=== PATIENT | female | born 1965 | race American Indian/Alaskan Native ===

== ENCOUNTER 2016-10-09 18:17 | Emergency (ER) | payer BC, OTHER ==
[2016-10-09] MEDS ORDERED: Sodium Chloride 0.9% 1,000 ML IV ONE (20:19)
[2016-10-09] MEDS ORDERED: Ondansetron 8 MG in Sodium Chloride 0.9% 50 ML IV ONE (20:33)
[2016-10-09] MEDS ORDERED: GI Cocktail Oral Solution 30 ML PO ONE (20:33)
--- NOTE | 2016-10-09 20:36 | EDM.PDOC ---
ED HPI GI/ABDOMINAL - General Chief Complaint: Abdominal Pain Stated Complaint: STOMACH PAIN COUPLE OF DAYS Time Seen by Provider: 10/09/16 20:31 Source of Information: Reports: Patient History Limitations: Reports: No limitations - History of Present Illness INITIAL COMMENTS - FREE TEXT/NARRATIVE: 50 yo [place] female c/o LUQ Abd. pain X 2 days w/ Nausea and Diarrhea. Symptom Onset Date: 10/08/16 Symptom Onset Time: 14:00 Timing/Duration: Reports: Day(s):, Unsure Location: LUQ Quality: Reports: ache, cramping Severity: moderate Context: Reports: bad/questionable food Associated Symptoms (-Female): Reports: diarrhea - Related Data Allergies/ADRs: Allergies Allergy/AdvReac Type Severity Reaction Status Date / Time No Known Allergies Allergy Verified 10/09/16 18:47 Home Meds: Home Meds Hydrocortisone [Cortef] 25 mg PO DAILY 11/01/13 [History] Levothyroxine Sodium [Synthroid] 150 mcg PO DAILY 11/01/13 [History] Nabumetone [Relafen] 750 mg PO BID 08/03/14 [History] Aspirin [Halfprin] 81 mg PO BRK 11/19/15 [History] Celecoxib [CeleBREX] 100 mg PO BID 10/09/16 [History] Hydroxychloroquine [Plaquenil] 200 mg PO BID 10/09/16 [History] Sertraline HCl 50 mg PO 10/09/16 [History] atorvaSTATin Calcium [Atorvastatin Calcium] 20 mg PO 10/09/16 [History] Past Medical History HEENT History: Reports: Head Cardiovascular History: Reports: High cholesterol Respiratory History: Reports: Other (see below) Other Respiratory History: sarcodosis Musculoskeletal History: Reports: RA, Other (see below) Other Musculoskeletal History: Has mixed connective tissue Neurological History: Reports: Migraines Psychiatric History: Reports: Anxiety, Depression Endocrine/Metabolic History: Reports: [place]'s disease, Hypothyroidism, Other ( see below) Other Endocrine/Metabolic History: drew's disease. pituitary tumor. Graves disease Immunologic History: Reports: SLE, Other (see below) Other Immunologic History: scleroderma Oncologic (Cancer) History: Reports: Other (see below) Other Oncologic History: pituitary tumor Other Dermatologic History: hyperpigmentation. hereditary angioedema - Infectious Disease History Infectious Disease History: Reports: MRSA - Past Surgical History Respiratory Surgical History: Reports: Lung Biopsies GI Surgical History: Reports: Cholecystectomy Female Surgical History: Reports: Hysterectomy Endocrine Surgical History: Reports: Pituitary tumor resection Social & Family History - Family History Family Medical History: Noncontributory Cardiac: Reports: None Respiratory: Reports: None GI: Reports: None Hematologic: Reports: None Immunologic: Reports: None, Immunosuppression Dermatologic: Reports: Angiodema Oncologic: Reports: None - Tobacco Use Smoking Status *Q: Current Every Day Smoker Years of Tobacco use: 6 Packs/Tins Daily: 0.5 Used Tobacco, but Quit: No Month Tobacco Last Used: july Hand Smoke Exposure: Yes - Caffeine Use Caffeine Use: Reports: Soda - Alcohol Use Days Per Week of Alcohol Use: 0 - Recreational Drug Use Recreational Drug Use: No - Living Situation & Occupation Living situation: Reports: with family Occupation: employed ED ROS GENERAL - Review of Systems Review Of Systems: See Below Constitutional: Reports: no symptoms HEENT: Reports: No symptoms Respiratory: Reports: No Symptoms Cardiovascular: Reports: No symptoms Endocrine: Reports: no symptoms GI/Abdominal: Reports: Abdominal pain (LUQ Pain) : Reports: no symptoms Musculoskeletal: Reports: no symptoms Skin: Reports: no symptoms Neurological: Reports: No Symptoms Psychiatric: Reports: No symptoms Hematologic/Lymphatic: Reports: no symptoms Immunologic: Reports: no symptoms ED EXAM, GI/ABD - Physical Exam Exam: See Below Exam Limited By: No limitations General Appearance: alert, no apparent distress, obese Eyes: bilateral: EOMI Ears: normal external exam Nose: normal inspection Throat/Mouth: Normal inspection Head: atraumatic Neck: normal inspection Respiratory/Chest: no respiratory distress, lungs clear Cardiovascular: normal peripheral pulses GI/Abdominal: soft, hypoactive bowel sounds, tenderness (LUQ w/o rebound) Back Exam: normal inspection Extremities: normal inspection Neurological: alert, oriented, CN II-XII intact Psychiatric: normal affect Skin Exam: Warm, Dry Lymphatic: no adenopathy Course - Vital Signs Last Recorded V/S: Last Vital Signs Temp 36.6 C 10/09/16 18:51 Pulse 84 10/09/16 18:51 Resp 18 10/09/16 18:51 BP 122/70 10/09/16 18:51 Pulse Ox 99 10/09/16 18:51 - Orders/Labs/Meds Orders: Active Orders 24 hr Category Date Time Status Abdomen 2V AP Flat Upright [CR] Urgent Exams 10/09/16 20:19 Stop Req Abdomen Pelvis w Cont [CT] Urgent Exams 10/09/16 20:54 Taken Labs: Laboratory Tests 10/09/16 10/09/16 10/09/16 Range/Units 20:25 20:25 20:33 WBC 8.3 (5.0-10.0) 10^3/uL RBC 5.45 H (4.2-5.4) 10^6/uL Hgb 16.0 (12.0-16.0) g/dL Hct 46.3 (37.0-47.0) % MCV 85.0 (80-100) fL MCH 29.4 (27.0-34.0) pg MCHC 34.6 (33.0-35.0) g/dL Plt Count 232 (150-450) 10^3/uL Neut % (Auto) 83.2 H (42.2-75.2) % Lymph % (Auto) 10.5 L (20.5-50.1) % [place] % (Auto) 5.7 (2-8) % Eos % (Auto) 0.5 L (1.0-3.0) % Baso % (Auto) 0.1 (0.0-1.0) % Sodium 136 (135-145) mmol/L Potassium 4.1 (3.6-5.0) mmol/L Chloride 101 (101-111) mmol/L Carbon Dioxide 27.0 (21.0-31.0) mmol/L Anion Gap 12.1 BUN 15 (7-18) mg/dL Creatinine 0.9 (0.6-1.3) mg/dL Est Cr Clr Drug Dosing 63.86 mL/min Estimated GFR (MDRD) > 60 BUN/Creatinine Ratio 16.66 Glucose 165 H (74-105) mg/dL Calcium 9.0 (8.4-10.2) mg/dl Total Bilirubin 0.5 (0.2-1.0) mg/dL AST 40 (10-42) IU/L ALT 42 (10-60) IU/L Alkaline Phosphatase 94 (42-121) IU/L Total Protein 7.1 (6.7-8.2) g/dl Albumin 4.2 (3.2-5.5) g/dl Globulin 2.9 Albumin/Globulin Ratio 1.45 Urine Color Yellow (YELLOW) Urine Appearance Slightly cloudy (CLEAR) Urine pH 5.5 (5.0-9.0) Ur Specific [place] >= 1.030 (1.005-1.030) Urine Protein 30 H (NEGATIVE) Urine Glucose (UA) 100 H (NEGATIVE) Urine Ketones Negative (NEGATIVE) Urine Occult Blood Negative (NEGATIVE) Urine Nitrite Negative (NEGATIVE) Urine Bilirubin Small H (NEGATIVE) Urine Urobilinogen 1.0 (0.2-1.0) mg/dL Ur Leukocyte Esterase Negative (NEGATIVE) Urine RBC 0-5 /HPF Urine WBC 0-5 (0-5/HPF) /HPF Ur Epithelial Cells Rare /HPF Urine Bacteria Moderate H (0-FEW/HPF) /HPF Urine Mucus Moderate H /LPF Meds: Medications Discontinued Medications Generic Name Dose Route Start Last Admin Trade Name Freq PRN Reason Stop Dose Admin Al Hydroxide/Mg Hydroxide 30 ml 10/09/16 20:33 10/09/16 20:45 Gi Cocktail PO 10/09/16 20:34 30 ml ONETIME ONE Administration Sodium Chloride 1,000 mls @ 999 mls/hr 10/09/16 20:19 10/09/16 20:45 Normal Saline IV 10/09/16 21:19 999 mls/hr .BOLUS ONE Administration Ondansetron HCl 8 mg/ Sodium 54 mls @ 200 mls/hr 10/09/16 20:33 10/09/16 20: 45 Chloride IV 10/09/16 20:49 200 mls/hr ONETIME ONE Administration Iopamidol 100 ml 10/09/16 20:56 10/09/16 21:07 Isovue-300 (61%) IVPUSH 10/09/16 20:57 100 ml ONETIME ONE Administration Departure - Departure Time of Disposition: 22:08 Disposition: Home, Self-Care 01 Condition: good Clinical Impression: Gastroenteritis Forms: ED Department Discharge Additional Instructions: Rest Increase intake of CLEAR Fluids ( Water / Pedialyte / Gatorade ) Take the medication as needed for abdomen cramps: BENTYL 10mg TID # 20 F/U w/ PCP - My Orders Last 24 Hours: My Active Orders 10/09/16 20:19 Abdomen 2V AP Flat Upright [CR] Urgent 10/09/16 20:54 Abdomen Pelvis w Cont [CT] Urgent - Assessment/Plan Last 24 Hours: My Active Orders 10/09/16 20:19 Abdomen 2V AP Flat Upright [CR] Urgent 10/09/16 20:54 Abdomen Pelvis w Cont [CT] Urgent
[2016-10-09 20:51] LABS: CHLORIDE,CL 101 mmol/L (101-111); SODIUM,NA 136 mmol/L (135-145)
[2016-10-09] MEDS ORDERED: Iopamidol 612 MG/ML 100 ML Bottle IVPUSH ONE (20:56)
[2016-10-09 22:20] VITALS: BP 100/66
== END 2016-10-09 22:20 | disposition home or self-care (01) ==
LOC: DL.ED 18:17
DX: K52.9 Noninfective gastroenteritis and colitis, unspecified (principal); E78.00 Pure hypercholesterolemia, unspecified; M06.9 Rheumatoid arthritis, unspecified; F41.9 Anxiety disorder, unspecified; F32.9 Major depressive disorder, single episode, unspecified; E03.9 Hypothyroidism, unspecified; F17.210 Nicotine dependence, cigarettes, uncomplicated; Z79.82 Long term (current) use of aspirin; Z79.899 Other long term (current) drug therapy; Z90.49 Acquired absence of other specified parts of digestive tract; Z90.710 Acquired absence of both cervix and uterus
CPT/HCPCS: 36415; 74177; 80053; 81001; 85025; 96361; 96365; 99284; A9270; J2405; J7030; J7050; Q9967

== ENCOUNTER 2017-07-08 13:14 | Emergency (ER) | payer OTHER ==
--- NOTE | 2017-07-08 13:24 | EDM.PDOC ---
ED HPI GENERAL MEDICAL PROBLEM - General Chief Complaint: Fever Stated Complaint: TEMP 102 Time Seen by Provider: 07/08/17 13:24 Source of Information: Reports: Patient, Old Records, RN, RN Notes Reviewed History Limitations: Reports: No Limitations - History of Present Illness INITIAL COMMENTS - FREE TEXT/NARRATIVE: Arrives from home by POV with c/o onset last night of fevers up to 102F, occasional chills, sore throat, frontal headache, occ. cough, and nausea with vomiting x1. Denies sputum production, neck pain or stiffness, abdominal pain, diarrhea, constipation, diarrhea, urinary symptoms, or rash. Onset: Sudden Onset Date: 07/07/17 Duration: Constant Location: Reports: Generalized Quality: Reports: Ache Severity: Severe Improves with: Reports: None Worsens with: Reports: None Context: Reports: Sick Contact Associated Symptoms: Reports: No Other Symptoms Headache Pain Score (Numeric/FACES): 6 - Related Data Allergies Allergy/AdvReac Type Severity Reaction Status Date / Time No Known Allergies Allergy Verified 10/09/16 18:47 Home Meds: Home Meds Hydrocortisone [Cortef] 25 mg PO DAILY 11/01/13 [History] Levothyroxine Sodium [Synthroid] 150 mcg PO DAILY 11/01/13 [History] Nabumetone [Relafen] 750 mg PO BID 08/03/14 [History] Aspirin [Halfprin] 81 mg PO BRK 11/19/15 [History] Celecoxib [CeleBREX] 100 mg PO BID 10/09/16 [History] Hydroxychloroquine [Plaquenil] 200 mg PO BID 10/09/16 [History] Sertraline HCl 50 mg PO 10/09/16 [History] atorvaSTATin Calcium [Atorvastatin Calcium] 20 mg PO 10/09/16 [History] Past Medical History HEENT History: Reports: Head Cardiovascular History: Reports: High Cholesterol Respiratory History: Reports: Other (See Below) Other Respiratory History: sarcodosis Musculoskeletal History: Reports: RA, Other (See Below) Other 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 pituitary tumor. Graves disease Immunologic History: Reports: SLE, Other (See Below) Other Immunologic History: scleroderma Oncologic (Cancer) History: Reports: Other (See Below) Other Oncologic History: pituitary tumor Other Dermatologic History: hyperpigmentation. hereditary angioedema - Infectious Disease History Infectious Disease History: Reports: MRSA - Past Surgical History Endocrine Surgical History: Reports: Pituitary Tumor Resection Social & Family History - Family History Family Medical History: Noncontributory Cardiac: Reports: None Respiratory: Reports: None GI: Reports: None Hematologic: Reports: None Immunologic: Reports: None, Immunosuppression Dermatologic: Reports: Angiodema Oncologic: Reports: None - Tobacco Use Smoking Status *Q: Current Every Day Smoker Years of Tobacco use: 6 Packs/Tins Daily: 0.5 Used Tobacco, but Quit: No Month Tobacco Last Used: july Second Hand Smoke Exposure: Yes - Caffeine Use Caffeine Use: Reports: Soda - Alcohol Use Days Per Week of Alcohol Use: 0 - Recreational Drug Use Recreational Drug Use: No - Living Situation & Occupation Living situation: Reports: , with Family Occupation: Employed ED ROS GENERAL - Review of Systems Review Of Systems: ROS reveals no pertinent complaints other than HPI. ED EXAM, GENERAL - Physical Exam Exam: See Below Exam Limited By: No Limitations General Appearance: Alert, WD/WN, No Apparent Distress, Obese, Other (acutely ill but non-toxic appearing) Eye Exam: Bilateral Eye: Normal Inspection Ears: Normal External Exam, Normal Canal, Hearing Grossly Normal, Normal TMs Nose: Normal Inspection, Normal Mucosa, No Blood Throat/Mouth: Normal Lips, Normal Teeth, Normal Gums, Normal Voice, No Airway Compromise, Other (pharyngeal erythema, no exudates) Head: Atraumatic, Normocephalic Neck: Normal Inspection, Supple, Non-Tender, Full Range of Motion, Other (no nuchal rigidity). No: Lymphadenopathy (L), Lymphadenopathy (R) Respiratory/Chest: No Respiratory Distress, Lungs Clear, No Accessory Muscle Use , Decreased Breath Sounds, Other (occ. cough) Cardiovascular: Regular Rate, Rhythm, No Edema, Tachycardia GI/Abdominal: Normal Bowel Sounds, Soft, Non-Tender, No Distention, No Abnormal Bruit. No: Guarding, Rigid, Rebound (Female) Exam: Deferred Rectal (Female) Exam: Deferred Back Exam: Normal Inspection. No: CVA Tenderness (L), CVA Tenderness (R) Extremities: Normal Inspection, Normal Range of Motion, Non-Tender, Normal Capillary Refill, No Pedal Edema Neurological: Alert, Oriented, CN II-XII Intact, Normal Cognition, Normal Gait, No Motor/Sensory Deficits Psychiatric: Normal Mood Skin Exam: Warm, Dry, Intact, Normal Color, No Rash Course - Vital Signs Last Recorded V/S: Last Vital Signs Temp 36.8 C 07/08/17 15:21 Pulse 101 H 07/08/17 15:21 Resp 20 07/08/17 15:21 BP 105/51 L 07/08/17 15:21 Pulse Ox 94 L 07/08/17 15:21 - Orders/Labs/Meds Orders: Active Orders 24 hr Category Date Time Status Peripheral IV Care [RC] . DIRECTED Care 07/08/17 13:34 Active CULTURE BLOOD [] Stat Lab 07/08/17 13:45 Received CULTURE BLOOD [] Stat Lab 07/08/17 13:50 Received CULTURE STREP A CONFIRMATION [] Stat Lab 07/08/17 13:42 Results STREP SCRN A RAPID W CULT CONF [] Stat Lab 07/08/17 13:42 Results Sodium Chloride 0.9% [Saline Flush] Med 07/08/17 13:34 Active 10 ml FLUSH ASDIRECTED PRN Blood Culture x2 Reflex Set [OM.PC] Stat Oth 07/08/17 13:34 Ordered Peripheral IV Insertion Adult [OM.PC] Stat Oth 07/08/17 13:34 Ordered Medication Orders Sodium Chloride (Saline Flush) 10 ml FLUSH ASDIRECTED PRN PRN Reason: Keep Vein Open Last Admin: 07/08/17 13:57 Dose: 10 ml Labs: Laboratory Tests 07/08/17 07/08/17 07/08/17 Range/Units 13:45 13:50 13:50 WBC 9.0 (5.0-10.0) 10^3/uL RBC 5.81 H (4.2-5.4) 10^6/uL Hgb 16.5 H (12.0-16.0) g/dL Hct 47.5 H (37.0-47.0) % MCV 81.8 D (80-100) fL MCH 28.4 (27.0-34.0) pg MCHC 34.7 (33.0-35.0) g/dL Plt Count 226 (150-450) 10^3/uL Neut % (Auto) 77.6 H (42.2-75.2) % Lymph % (Auto) 11.9 L (20.5-50.1) % [place] % (Auto) 8.7 H (2-8) % Eos % (Auto) 1.6 (1.0-3.0) % Baso % (Auto) 0.2 (0.0-1.0) % Sodium 136 (135-145) mmol/L Potassium 3.2 L (3.6-5.0) mmol/L Chloride 101 (101-111) mmol/L Carbon Dioxide 24.0 (21.0-31.0) mmol/L Anion Gap 14.2 BUN 8 (7-18) mg/dL Creatinine 0.9 (0.6-1.3) mg/dL Est Cr Clr Drug Dosing 60.49 mL/min Estimated GFR (MDRD) > 60 BUN/Creatinine Ratio 8.88 Glucose 105 (74-105) mg/dL Lactic Acid 1.9 (0.5-2.2) mmol/L Calcium 9.1 (8.4-10.2) mg/dl Total Bilirubin 0.8 (0.2-1.0) mg/dL AST 24 (10-42) IU/L ALT 15 (10-60) IU/L Alkaline Phosphatase 60 (42-121) IU/L Total Protein 7.1 (6.7-8.2) g/dl Albumin 4.3 (3.2-5.5) g/dl Globulin 2.8 Albumin/Globulin Ratio 1.54 Urine Color (YELLOW) Urine Appearance (CLEAR) Urine pH (5.0-9.0) Ur Specific [place] (1.005-1.030) Urine Protein (NEGATIVE) Urine Glucose (UA) (NEGATIVE) Urine Ketones (NEGATIVE) Urine Occult Blood (NEGATIVE) Urine Nitrite (NEGATIVE) Urine Bilirubin (NEGATIVE) Urine Urobilinogen (0.2-1.0) mg/dL Ur Leukocyte Esterase (NEGATIVE) Urine RBC /HPF Urine WBC (0-5/HPF) /HPF Ur Epithelial Cells /HPF Amorphous Sediment (0/HPF) /HPF Urine Bacteria (0-FEW/HPF) /HPF Urine Mucus /LPF 07/08/17 Range/Units 15:17 WBC (5.0-10.0) 10^3/uL RBC (4.2-5.4) 10^6/uL Hgb (12.0-16.0) g/dL Hct (37.0-47.0) % MCV (80-100) fL MCH (27.0-34.0) pg MCHC (33.0-35.0) g/dL Plt Count (150-450) 10^3/uL Neut % (Auto) (42.2-75.2) % Lymph % (Auto) (20.5-50.1) % [place] % (Auto) (2-8) % Eos % (Auto) (1.0-3.0) % Baso % (Auto) (0.0-1.0) % Sodium (135-145) mmol/L Potassium (3.6-5.0) mmol/L Chloride (101-111) mmol/L Carbon Dioxide (21.0-31.0) mmol/L Anion Gap BUN (7-18) mg/dL Creatinine (0.6-1.3) mg/dL Est Cr Clr Drug Dosing mL/min Estimated GFR (MDRD) BUN/Creatinine Ratio Glucose (74-105) mg/dL Lactic Acid (0.5-2.2) mmol/L Calcium (8.4-10.2) mg/dl Total Bilirubin (0.2-1.0) mg/dL AST (10-42) IU/L ALT (10-60) IU/L Alkaline Phosphatase (42-121) IU/L Total Protein (6.7-8.2) g/dl Albumin (3.2-5.5) g/dl Globulin Albumin/Globulin Ratio Urine Color Yellow (YELLOW) Urine Appearance Slightly cloudy (CLEAR) Urine pH 5.0 (5.0-9.0) Ur Specific [place] 1.025 (1.005-1.030) Urine Protein Negative (NEGATIVE) Urine Glucose (UA) Negative (NEGATIVE) Urine Ketones Negative (NEGATIVE) Urine Occult Blood Negative (NEGATIVE) Urine Nitrite Negative (NEGATIVE) Urine Bilirubin Negative (NEGATIVE) Urine Urobilinogen 0.2 (0.2-1.0) mg/dL Ur Leukocyte Esterase Negative (NEGATIVE) Urine RBC 0-5 /HPF Urine WBC 0-5 (0-5/HPF) /HPF Ur Epithelial Cells Few /HPF Amorphous Sediment Rare (0/HPF) /HPF Urine Bacteria Rare (0-FEW/HPF) /HPF Urine Mucus Few H /LPF Influenza A/B: Negative Rapid Strep: Negative Meds: Medications Generic Name Dose Route Start Last Admin Trade Name Tiffanie PRN Reason Stop Dose Admin Sodium Chloride 10 ml 07/08/17 13:34 07/08/17 13:57 Saline Flush FLUSH 10 ml ASDIRECTED PRN Administration Keep Vein Open Discontinued Medications Generic Name Dose Route Start Last Admin Trade Name Tiffanie PRN Reason Stop Dose Admin Acetaminophen 650 mg 07/08/17 13:36 07/08/17 14:00 Tylenol PO 07/08/17 13:37 650 mg NOW ONE Administration Dexamethasone 4 mg 07/08/17 13:35 07/08/17 13:59 Dexamethasone IVPUSH 07/08/17 13:36 4 mg ONETIME ONE Administration Sodium Chloride 1,000 mls @ 999 mls/hr 07/08/17 13:35 07/08/17 13:56 Normal Saline IV 07/08/17 14:35 999 mls/hr .BOLUS ONE Administration Ondansetron HCl 4 mg 07/08/17 13:35 07/08/17 13:57 Zofran IV 07/08/17 13:36 4 mg ONETIME ONE Administration Departure - Departure Time of Disposition: 15:46 Disposition: Home, Self-Care 01 Condition: Good Clinical Impression: Acute viral syndrome Fever Qualifiers: Fever type: unspecified Qualified Code(s): R50.9 - Fever, unspecified Headache Qualifiers: Headache type: unspecified Headache chronicity pattern: acute headache Intractability: not intractable Qualified Code(s): R51 - Headache - Discharge Information Instructions: Fever, Adult, [id number], General Headache Without Cause, Easy- to-Read Forms: ED Department Discharge Additional Instructions: Drink plenty of fluids. Tylenol (Acetaminophen) or Ibuprofen (Advil/Motrin) as needed for pain or fever. Follow directions on package label for dosing and precautions. Rx: Promethazine 25mg *Do not drive or work while under the influence of this medication as it may cause drowsiness. Follow up in clinic if not improving in 3 to 4 days. Return to ER for any emergent concerns. - My Orders Last 24 Hours: My Active Orders 07/08/17 13:34 Peripheral IV Care [RC] . DIRECTED Sodium Chloride 0.9% [Saline Flush] 10 ml FLUSH ASDIRECTED PRN Blood Culture x2 Reflex Set [OM.PC] Stat Peripheral IV Insertion Adult [OM.PC] Stat 07/08/17 13:42 CULTURE STREP A CONFIRMATION [RM] Stat STREP SCRN A RAPID W CULT CONF [RM] Stat 07/08/17 13:45 CULTURE BLOOD [BC] Stat 07/08/17 13:50 CULTURE BLOOD [BC] Stat - Assessment/Plan Last 24 Hours: My Active Orders 07/08/17 13:34 Peripheral IV Care [RC] . DIRECTED Sodium Chloride 0.9% [Saline Flush] 10 ml FLUSH ASDIRECTED PRN Blood Culture x2 Reflex Set [OM.PC] Stat Peripheral IV Insertion Adult [OM.PC] Stat 07/08/17 13:42 CULTURE STREP A CONFIRMATION [RM] Stat STREP SCRN A RAPID W CULT CONF [RM] Stat 07/08/17 13:45 CULTURE BLOOD [BC] Stat 07/08/17 13:50 CULTURE BLOOD [BC] Stat
[2017-07-08] MEDS ORDERED: Sodium Chloride 0.9% 10 ML Syringe FLUSH PRN (13:34)
[2017-07-08] MEDS ORDERED: Ondansetron 4 MG/2 ML SDV IV ONE (13:35)
[2017-07-08] MEDS ORDERED: Dexamethasone 4 MG/ML SDV IVPUSH ONE (13:35)
[2017-07-08] MEDS ORDERED: Sodium Chloride 0.9% 1,000 ML IV ONE (13:35)
[2017-07-08] MEDS ORDERED: Acetaminophen 325 MG Tab PO ONE (13:36)
[2017-07-08 14:19] LABS: CHLORIDE,CL 101 mmol/L (101-111); SODIUM,NA 136 mmol/L (135-145)
[2017-07-08 15:22] VITALS: BP 105/51
== END 2017-07-08 16:07 | disposition home or self-care (01) ==
LOC: DL.ED 13:14
DX: B34.9 Viral infection, unspecified (principal); F17.210 Nicotine dependence, cigarettes, uncomplicated; E11.9 Type 2 diabetes mellitus without complications; E03.9 Hypothyroidism, unspecified; E78.00 Pure hypercholesterolemia, unspecified; Z79.899 Other long term (current) drug therapy; Z79.82 Long term (current) use of aspirin
CPT/HCPCS: 36415; 80053; 81001; 83605; 85025; 87040; 87081; 87430; 87804; 96361; 96374; 96375; 99284; A9270; J1100; J2405; J7030; J7050

== ENCOUNTER 2020-06-28 16:05 | Emergency (ER) | payer OTHER ==
[2020-06-28 16:23] VITALS: BP 155/81; PULSE 78
--- NOTE | 2020-06-28 16:38 | EDM.PDOC ---
ED HPI GENERAL MEDICAL PROBLEM - General Chief Complaint: Back Pain or Injury Stated Complaint: RIGHT LEG PAIN STARTS IN BACK GOES DOWN PAIN 2DAYS Time Seen by Provider: 06/28/20 16:38 Source of Information: Reports: Patient, RN, RN Notes Reviewed History Limitations: Reports: No Limitations - History of Present Illness INITIAL COMMENTS - FREE TEXT/NARRATIVE: Pt is a 54 year old female who presents to the ER with c/o right lower back pain with shooting pains down the right leg. She states she does have some numbness to the anterior of the right leg. She states the pain began about 6 weeks ago. Patient states she saw her primary care provider at [facility] who did an xray, gave her flexeril and gabapentin. Patient states she has been laying flat on her back for the most part, which is what feels best, also states she has been using heat to the area. Patient denies any injury that lead up to the pain. 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 Patient rates pain 10/10. Onset: Gradual Duration: Constant, Getting Worse Location: Reports: Lower Extremity, Right Quality: Reports: Sharp, Stabbing, Throbbing Severity: Severe Improves with: Reports: None Worsens with: Reports: None Context: Reports: Activity, Exercise, Lifting Associated Symptoms: Reports: No Other Symptoms, Weakness right back/leg Pain Score (Numeric/FACES): 10 - Related Data Allergies Allergy/AdvReac Type Severity Reaction Status Date / Time No Known Allergies Allergy Verified 06/28/20 16:32 Home Meds: Home Meds Hydrocortisone [Cortef] 15 mg PO QAM 11/01/13 [History] Acetaminophen 1,000 mg PO BID PRN 12/19/17 [History] Calcium Citrate/Vitamin D3 [Calcium Citrate - Vit D Tablet] 1 tab PO BID 12/19/17 [History] Cyclobenzaprine [Flexeril] 10 mg PO TID PRN 12/19/17 [History] Hydrocortisone 10 mg PO WITHDINNER 12/19/17 [History] SUMAtriptan succinate [Imitrex] 50 mg PO ASDIRECTED PRN 12/19/17 [History] Famotidine 40 mg PO BEDTIME 06/22/18 [History] Fludrocortisone [Fludrocortisone Acetate] 0.1 mg PO DAILY 06/28/20 [History] Hydroxychloroquine [Plaquenil] 200 mg PO BID 06/28/20 [History] Levothyroxine 175 mcg PO ACBREAKFAST 06/28/20 [History] Loratadine [Claritin] 10 mg PO DAILY 06/28/20 [History] Past Medical History HEENT History: Reports: Head, Impaired Vision Other HEENT History: SURGICAL HOLE IN DEVIATED SEPTUM. WEARS CORRECTIVE LENS. UPPER DENTURE PLATE Cardiovascular History: Reports: High Cholesterol Other Cardiovascular History: HX OF LOW BLOOD PRESSURE Respiratory History: Reports: Other (See Below) Other Respiratory History: sarcodosis Gastrointestinal History: Reports: GERD Genitourinary History: Reports: UTI, Recurrent PUBLIC RELATIONS INTERN History: Reports: , Spontaneous Musculoskeletal History: Reports: Arthritis, RA, Other (See Below) Other Musculoskeletal History: Has mixed connective tissue Neurological History: Reports: Migraines Psychiatric History: Reports: Anxiety, Depression Endocrine/Metabolic History: Reports: Columbus's Disease, Diabetes, Type II, Hypothyroidism, Obesity/BMI 30+, Osteopenia, Other (See Below) Other Endocrine/Metabolic History: drew's disease. pituitary tumor. Graves disease Hematologic History: Reports: B12 Deficiency Immunologic History: Reports: SLE, Other (See Below) Other Immunologic History: scleroderma. SLE FACTOR Oncologic (Cancer) History: Reports: Other (See Below) Other Oncologic History: pituitary tumor Dermatologic History: Reports: Other (See Below) Other Dermatologic History: hyperpigmentation. hereditary angioedema - Infectious Disease History Infectious Disease History: Reports: Chicken Pox, MRSA - Past Surgical History Head Surgeries/Procedures: Reports: None HEENT Surgical History: Reports: Other (See Below) Other HEENT Surgeries/Procedures: SEPTUM Cardiovascular Surgical History: Reports: None Respiratory Surgical History: Reports: Lung Biopsies GI Surgical History: Reports: Cholecystectomy, EGD Female Surgical History: Reports: Hysterectomy, Tubal Ligation Endocrine Surgical History: Reports: Pituitary Tumor Resection Neurological Surgical History: Reports: None Musculoskeletal Surgical History: Reports: None Oncologic Surgical History: Reports: None Dermatological Surgical History: Reports: None Social & Family History - Family History Family Medical History: No Pertinent Family History Cardiac: Reports: None Respiratory: Reports: None GI: Reports: None Hematologic: Reports: None Immunologic: Reports: None, Immunosuppression Dermatologic: Reports: Angiodema Oncologic: Reports: None - Caffeine Use Caffeine Use: Reports: Soda Other Caffeine Use: SPRITE ZERO, TEA AVERAGE OF 2-4 BEVERAGES DAILY - Living Situation & Occupation Living situation: Reports: , with Family Occupation: Employed ED ROS GENERAL - Review of Systems Review Of Systems: Comprehensive ROS is negative, except as noted in HPI. ED EXAM,LOWER BACK PAIN/INJURY - Physical Exam Exam: See Below Exam Limited By: No Limitations General Appearance: Alert, WD/WN, Moderate Distress Eye Exam: Bilateral Eye: EOMI, Normal Inspection Ears: Normal External Exam, Hearing Grossly Normal Nose: Normal Inspection Throat/Mouth: Normal Inspection, Normal Lips, Normal Teeth, Normal Gums, Normal Oropharynx, Normal Voice, No Airway Compromise Head: Atraumatic, Normocephalic Neck: Normal Inspection, Supple, Non-Tender, Full Range of Motion Respiratory/Chest: No Respiratory Distress, Lungs Clear, Normal Breath Sounds, No Accessory Muscle Use, Chest Non-Tender Cardiovascular: Normal Peripheral Pulses, Regular Rate, Rhythm, No Edema, No Gallop, No JVD, No Murmur, No Rub GI/Abdominal: Normal Bowel Sounds, Soft, Non-Tender (Female) Exam: Deferred Rectal (Female) Exam: Deferred Back Exam: Decreased Range of Motion, Muscle Spasm, Paraspinal Tenderness, Vertebral Tenderness Extremities: Leg Pain, Limited Range of Motion Neurological: Alert, Normal Mood/Affect, CN II-XII Intact, Oriented x 3 Psychiatric: Normal Affect, Normal Mood, Tearful Skin Exam: Warm, Dry, Intact, Normal Color, No Rash Lymphatic: No Adenopathy Course - Vital Signs Last Recorded V/S: Last Vital Signs Temp 98.4 F 06/28/20 16:21 Pulse 78 06/28/20 16:21 Resp 20 06/28/20 16:21 BP 155/81 H 06/28/20 16:21 Pulse Ox 100 06/28/20 16:21 - Orders/Labs/Meds Meds: Medications Discontinued Medications Generic Name Dose Route Start Last Admin Trade Name Tiffanie PRN Reason Stop Dose Admin Dexamethasone 8 mg 06/28/20 16:55 06/28/20 17:16 Decadron IM 06/28/20 16:56 8 mg ONETIME ONE Administration Hydromorphone HCl 1 mg 06/28/20 16:55 06/28/20 17:13 Dilaudid IM 06/28/20 16:56 1 mg ONETIME ONE Administration - Re-Assessments/Exams Free Text/Narrative Re-Assessment/Exam: 06/28/20 17:42 Patient states the pain medication has helped. Departure - Departure Time of Disposition: 17:42 Disposition: Home, Self-Care 01 Condition: Fair Clinical Impression: Right lumbosacral radiculopathy Sciatica Qualifiers: Laterality: right Qualified Code(s): M54.31 - Sciatica, right side - Discharge Information *PRESCRIPTION DRUG MONITORING PROGRAM REVIEWED*: No *COPY OF PRESCRIPTION DRUG MONITORING REPORT IN PATIENT GINI: No Instructions: Muscle Strain, [id number], Sciatica, [id number], Lumbosacral Radiculopathy, Chronic Back Pain, [id number], Back Injury Prevention, [id number], Neuropathic Pain Forms: ED Department Discharge Additional Instructions: RX: Gabapentin Increase gabapentin to 600mg twice daily May use Flexeril as directed for muscle spasm/pain May use Tylenol as directed for pain May alternate heat and ice to the area Rest Follow up with your primary care facility on Tuesday for MRI and discuss Gabapentin/medications Sepsis Event Note (ED) - Evaluation Sepsis Screening Result: No Definite Risk - Focused Exam Vital Signs: Vital Signs Temp Pulse Resp BP Pulse Ox 06/28/20 16:21 98.4 F 78 20 155/81 H 100
[2020-06-28] MEDS ORDERED: Dexamethasone 4 MG/ML SDV IM ONE (16:55)
[2020-06-28] MEDS ORDERED: HYDROmorphone 1 MG/ML Syringe IM ONE (16:55)
== END 2020-06-28 17:49 | disposition home or self-care (01) ==
LOC: DL.ED 16:05
DX: M54.41 Lumbago with sciatica, right side (principal); M54.17 Radiculopathy, lumbosacral region; E11.9 Type 2 diabetes mellitus without complications; E03.9 Hypothyroidism, unspecified; K21.9 Gastro-esophageal reflux disease without esophagitis; E66.9 Obesity, unspecified; Z68.30 Body mass index [BMI] 30.0-30.9, adult; Z79.899 Other long term (current) drug therapy
CPT/HCPCS: 96372; 99283; J1100; J1170

== ENCOUNTER 2021-02-24 15:59 | Emergency (ER) | payer OTHER ==
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
[2021-02-24] MEDS ORDERED: Silver Sulfadiazine 1% Crm 50 GM Tube TOP ONE (16:14)
[2021-02-24] MEDS ORDERED: Diphtheria,Pertussis(Acell),Tetanus Vaccine 0.5 ML Syringe IM ONE (16:15)
[2021-02-24] MEDS ORDERED: HYDROmorphone 0.5 MG/0.5 ML Syringe IM ONE (16:17)
[2021-02-24] MEDS ORDERED: HYDROmorphone 0.5 MG/0.5 ML Syringe ONE (16:26)
== END 2021-02-24 17:20 | disposition home or self-care (01) ==
LOC: DL.ED 15:59
DX: T22.211A Burn of second degree of right forearm, initial encounter (principal); F19.90 Other psychoactive substance use, unspecified, uncomplicated; E27.1 Primary adrenocortical insufficiency; K21.9 Gastro-esophageal reflux disease without esophagitis; M06.9 Rheumatoid arthritis, unspecified; G43.909 Migraine, unspecified, not intractable, without status migrainosus; E11.9 Type 2 diabetes mellitus without complications; E03.9 Hypothyroidism, unspecified; Z23 Encounter for immunization; Z79.899 Other long term (current) drug therapy; X19.XXXA Contact with other heat and hot substances, initial encounter
CPT/HCPCS: 16020; 90471; 90715; 96372; 99283; A9270; J1170

== ENCOUNTER 2021-12-10 23:32 | Emergency (ER) | payer OTHER ==
[2021-12-10 21:04] VITALS: BP 165/105; PULSE 108
[~2021-12-10 23:32] MED LIST: Acetaminophen/HYDROcodone 325-10 MG Tab ONE; HYDROmorphone 0.5 MG/0.5 ML Syringe IVPUSH ONE
[2021-12-10] MEDS ORDERED: Acetaminophen/HYDROcodone 325-10 MG Tab PO ONE (23:33)
== END 2021-12-10 23:47 | disposition home or self-care (01) ==
LOC: DL.ED 23:32
DX: S52.502A Unspecified fracture of the lower end of left radius, initial encounter for closed fracture (principal); S52.602A Unspecified fracture of lower end of left ulna, initial encounter for closed fracture; E03.9 Hypothyroidism, unspecified; E11.9 Type 2 diabetes mellitus without complications; Z90.49 Acquired absence of other specified parts of digestive tract; Z90.710 Acquired absence of both cervix and uterus; Z87.891 Personal history of nicotine dependence; Z79.899 Other long term (current) drug therapy; W18.39XA Other fall on same level, initial encounter
CPT/HCPCS: 29125; 73060; 73090; 96374; 99283; A9270; J1170

== ENCOUNTER 2022-07-05 22:09 | Inpatient (IN) | payer OTHER ==
[~2022-07-05 22:09] MED LIST changes: -Acetaminophen/HYDROcodone 325-10 MG Tab ONE; -HYDROmorphone 0.5 MG/0.5 ML Syringe IVPUSH ONE; +Hydrocortisone Sodium Succinate 100 MG/2 ML SDV IVPUSH ONE; +Sodium Chloride 0.9% 1,000 ML IV ONE
[2022-07-05 22:31] LABS: ANION GAP 19.1 mEq/L (7-13)
[2022-07-05] MEDS ORDERED: Magnesium Sulfate/Water 2 GM in Premix Bag 1 BAG IV ONE (22:41)
[2022-07-05 22:42] LABS: CORONAVIRUS COVID-19 NAA NEGATIVE (NEGATIVE); RESPIRATORY SYNCYTIAL VIR NAA NEGATIVE (NEGATIVE)
[2022-07-05] MEDS ORDERED: Sodium Chloride 0.9% 1,000 ML IV ONE (23:00)
[2022-07-05] MEDS ORDERED: Ondansetron 4 MG/2 ML SDV IVPUSH ONE (23:04)
[2022-07-05] MEDS ORDERED: Fludrocortisone 0.1 MG Tab PO ONE (23:57)
[2022-07-06] MEDS ORDERED: cefTRIAXone 1 GM Vial IVPUSH ONE (00:16)
[2022-07-06] MEDS ORDERED: Norepinephrine 4 MG in Dextrose 5% in Water 246 ML IV SCH ×2 (00:30)
[2022-07-06] MEDS ORDERED: Dextrose 5%-0.9% NaCl with KCl 1,000 ML IV SCH (01:00)
[2022-07-06] MEDS ORDERED: Hydrocortisone Sodium Succinate 100 MG/2 ML SDV IVPUSH SCH (04:00)
[2022-07-06] MEDS ORDERED: Acetaminophen 500 MG Tab PO ONE ×2 (05:18→07:23)
[2022-07-06 05:28] LABS: ANION GAP 16.1 mEq/L (7-13)
[2022-07-06] MEDS ORDERED: Sodium Chloride 0.9% 1,000 ML IV ONE (06:58)
[2022-07-06] MEDS ORDERED: Acetaminophen 325 MG Tab PO PRN (09:35)
[2022-07-06] MEDS ORDERED: Ondansetron 4 MG Tab.DIS PO PRN (09:35)
[2022-07-06] MEDS ORDERED: Docusate Sodium 100 MG Cap PO PRN (09:35)
[2022-07-06] MEDS ORDERED: Ondansetron 4 MG/2 ML SDV IVPUSH PRN (09:35)
[2022-07-06] MEDS ORDERED: Sodium Chloride 0.9% 10 ML Syringe FLUSH PRN (09:37)
[2022-07-06 10:38] LABS: ANION GAP 13.2 mEq/L (7-13)
[2022-07-06] MEDS: Lactated Ringers 1,000 ML IV SCH ×2 (11:06→17:32)
[2022-07-06] MEDS: Hydrocortisone Sodium Succinate 100 MG/2 ML SDV IVPUSH SCH ×2 (12:12→17:29)
[2022-07-06] MEDS: Heparin Sodium 5,000 Units/ML Vial SUBCUT SCH ×2 (14:50→21:11)
[2022-07-06] MEDS ORDERED: Albuterol 6.7 GM Inhaler INH PRN (15:49)
[2022-07-06] MEDS ORDERED: SUMATRIPTAN SUCCINATE 50 MG PO PRN (15:49)
[2022-07-06] MEDS ORDERED: 50% Dextrose in Water 50 ML Syringe IVPUSH PRN (15:55)
[2022-07-06] MEDS ORDERED: Glucagon,Human Recombinant 1 MG Vial IM PRN (15:55)
[2022-07-06] MEDS: Hydroxychloroquine 200 MG Tab PO SCH (17:26)
[2022-07-06] MEDS: Insulin Lispro 100 Units/ML 3 ML Vial SUBCUT SCH ×2 (17:27→21:45)
[2022-07-06] MEDS: atorvaSTATin 20 MG Tab PO SCH (21:11)
[2022-07-06] MEDS: cefTRIAXone 2 GM Vial IVPUSH SCH (21:11)
[2022-07-07] MEDS: Sodium Chloride 0.9% 10 ML Syringe FLUSH SCH ×3 (00:01→21:53)
[2022-07-07] MEDS: traZODone 50 MG Tab PO PRN ×2 (00:14→23:43)
[2022-07-07] MEDS: Lactated Ringers 1,000 ML IV SCH ×2 (01:37→09:47)
[2022-07-07] MEDS: Levothyroxine 150 MCG Tab PO SCH (05:43)
[2022-07-07] MEDS: Heparin Sodium 5,000 Units/ML Vial SUBCUT SCH ×3 (05:44→21:13)
[2022-07-07] MEDS: Hydrocortisone Sodium Succinate 100 MG/2 ML SDV IVPUSH SCH ×2 (05:44)
[2022-07-07 09:47] LABS: ANION GAP 13.4 mEq/L (7-13)
[2022-07-07] MEDS: Hydroxychloroquine 200 MG Tab PO SCH ×2 (09:48→17:18)
[2022-07-07] MEDS: Fludrocortisone 0.1 MG Tab PO SCH (09:48)
[2022-07-07] MEDS: Insulin Lispro 100 Units/ML 3 ML Vial SUBCUT SCH ×4 (09:49→21:13)
[2022-07-07 10:48] LABS: HEMOGLOBIN A1C 6.5 % (<5.7)
[2022-07-07] MEDS ORDERED: Potassium Chloride 10 MEQ Tab.ER PO ONE (11:00)
[2022-07-07] MEDS ORDERED: Hydrocortisone 20 MG Tab PO SCH (18:00)
[2022-07-07] MEDS: atorvaSTATin 20 MG Tab PO SCH (21:12)
[2022-07-07] MEDS: cefTRIAXone 2 GM Vial IVPUSH SCH (21:53)
[2022-07-08] MEDS: Levothyroxine 150 MCG Tab PO SCH (06:07)
[2022-07-08] MEDS: Heparin Sodium 5,000 Units/ML Vial SUBCUT SCH (06:09)
[2022-07-08 08:08] VITALS: BP 112/63; PULSE 80
[2022-07-08] MEDS: Hydroxychloroquine 200 MG Tab PO SCH (08:34)
[2022-07-08] MEDS: Fludrocortisone 0.1 MG Tab PO SCH (08:34)
[2022-07-08] MEDS ORDERED: Potassium Chloride 10 MEQ Tab.ER PO ONE (09:00)
[2022-07-08] MEDS ORDERED: Hydrocortisone 20 MG Tab PO SCH (09:00)
[2022-07-08] MEDS: Insulin Lispro 100 Units/ML 3 ML Vial SUBCUT SCH (09:00)
[2022-07-08] MEDS: Sodium Chloride 0.9% 10 ML Syringe FLUSH SCH (09:49)
== END 2022-07-08 10:35 | disposition home or self-care (01) | DRG 871 ==
LOC: DL.ED 22:09 → DL.MS 07-06 08:16 → DL.ED 07-06 08:31
PROVIDERS: ADMIT Hospitalist; ATTEND Hospitalist
PROC: 3E033XZ Introduction of Vasopressor into Peripheral Vein, Percutaneous Approach (ICD-10-PCS; principal; 2022-07-06)
PROC: 3E03329 Introduction of Other Anti-infective into Peripheral Vein, Percutaneous Approach (ICD-10-PCS; 2022-07-06)
DX: A41.9 Sepsis, unspecified organism (principal); R65.21 Severe sepsis with septic shock; N39.0 Urinary tract infection, site not specified; E27.1 Primary adrenocortical insufficiency; E27.2 Addisonian crisis; N17.9 Acute kidney failure, unspecified; K52.9 Noninfective gastroenteritis and colitis, unspecified; R73.9 Hyperglycemia, unspecified; H54.7 Unspecified visual loss; E78.00 Pure hypercholesterolemia, unspecified; Z20.822 Contact with and (suspected) exposure to COVID-19; K21.9 Gastro-esophageal reflux disease without esophagitis; M19.90 Unspecified osteoarthritis, unspecified site; M06.9 Rheumatoid arthritis, unspecified; G43.909 Migraine, unspecified, not intractable, without status migrainosus; F41.9 Anxiety disorder, unspecified; F32.A Depression, unspecified; E03.9 Hypothyroidism, unspecified; E66.9 Obesity, unspecified; M85.80 Other specified disorders of bone density and structure, unspecified site; E53.8 Deficiency of other specified B group vitamins; M32.9 Systemic lupus erythematosus, unspecified; D84.1 Defects in the complement system; Z86.19 Personal history of other infectious and parasitic diseases; Z86.14 Personal history of Methicillin resistant Staphylococcus aureus infection; Z90.49 Acquired absence of other specified parts of digestive tract; Z90.710 Acquired absence of both cervix and uterus; Z79.890 Hormone replacement therapy; Z79.899 Other long term (current) drug therapy; Z87.440 Personal history of urinary (tract) infections; Z98.51 Tubal ligation status; Z87.891 Personal history of nicotine dependence; Z68.34 Body mass index [BMI] 34.0-34.9, adult
CPT/HCPCS: 0241U; 36415; 74176; 80048; 80053; 81001; 82533; 82947; 83036; 83605; 83735; 84145; 84443; 85025; 86140; 87040; 87086; 87088; 87186; 99223; 99233; 99239; A9270-GY; J0696; J1644; J1720; J1815-GY; J2405; J3475; J3480; J3490; J7030; J7060; J7120

== ENCOUNTER 2022-07-23 15:23 | Emergency (ER) | payer OTHER ==
[2022-07-23] MEDS ORDERED: Sodium Chloride 0.9% 10 ML Syringe FLUSH PRN (15:45)
[2022-07-23 16:20] VITALS: BP 171/86; PULSE 75
[2022-07-23 16:33] LABS: ANION GAP 11.6 mEq/L (7-13)
== END 2022-07-23 17:39 | disposition home or self-care (01) ==
LOC: DL.ED 15:23
DX: R07.89 Other chest pain (principal); E11.9 Type 2 diabetes mellitus without complications; E03.9 Hypothyroidism, unspecified; K21.9 Gastro-esophageal reflux disease without esophagitis; Z79.899 Other long term (current) drug therapy
CPT/HCPCS: 36415; 71045; 80053; 83735; 84443; 84484; 85025; 93005; 99285

== ENCOUNTER 2022-08-15 09:34 | Emergency (ER) | payer OTHER ==
[2022-08-15] MEDS ORDERED: Ondansetron 4 MG Tab.DIS PO ONE (09:35)
[2022-08-15] MEDS ORDERED: Atropine/Diphenoxylate 0.025-2.5 MG Tab PO ONE ×2 (09:35→10:16)
[2022-08-15 10:13] VITALS: BP 111/75
[2022-08-15] MEDS ORDERED: Sodium Chloride 0.9% 1,000 ML IV ONE (10:15)
[2022-08-15] MEDS ORDERED: Hydrocortisone Sodium Succinate 100 MG/2 ML SDV IVPUSH ONE ×2 (10:15→14:05)
[2022-08-15] MEDS ORDERED: Ondansetron 4 MG/2 ML SDV IV ONE ×2 (10:15→14:09)
[2022-08-15] MEDS ORDERED: Sodium Chloride 0.9% 10 ML Syringe FLUSH PRN (10:17)
[2022-08-15] MEDS ORDERED: Morphine 2 MG/ML SYRINGE IVPUSH ONE (10:18)
[2022-08-15 11:13] LABS: ANION GAP 19.9 mEq/L (7-13)
[2022-08-15] MEDS ORDERED: Magnesium Sulfate/Water 2 GM in Premix Bag 1 BAG IV ONE (11:28)
[2022-08-15] MEDS ORDERED: NS with KCl 40mEq 1,000 ML IV SCH (11:30)
[2022-08-15] MEDS ORDERED: Atropine/Diphenoxylate 0.025-2.5 MG Tab ONE ×2 (13:33→14:02)
[2022-08-15] MEDS ORDERED: Ondansetron 4 MG Tab.DIS ONE (13:34)
[2022-08-15] MEDS ORDERED: Famotidine 20 MG/2 ML SDV IVPUSH ONE (14:09)
[2022-08-15] MEDS ORDERED: Morphine 4 MG/ML Syringe IVPUSH ONE (14:10)
[2022-08-15 15:59] VITALS: PULSE 102
== END 2022-08-15 16:13 | disposition home or self-care (01) ==
LOC: DL.ED 09:34
DX: K52.9 Noninfective gastroenteritis and colitis, unspecified (principal); E86.0 Dehydration; E27.1 Primary adrenocortical insufficiency; R51.9 Headache, unspecified; E78.00 Pure hypercholesterolemia, unspecified; E11.9 Type 2 diabetes mellitus without complications; E03.9 Hypothyroidism, unspecified; K21.9 Gastro-esophageal reflux disease without esophagitis; Z79.899 Other long term (current) drug therapy
CPT/HCPCS: 36415; 80053; 81001; 82150; 82947; 83605; 83735; 85025; 87040; 87045; 87046; 87086; 87493; 87899; 96361; 96365; 96366; 96368; 96375; 96376; 99283; 99284-25; A9270-GY; J1720; J2270; J2405; J3475; J3480; J3490; J7030

== ENCOUNTER 2023-02-21 19:45 | Emergency (ER) | payer OTHER ==
[2023-02-21] MEDS ORDERED: Sodium Chloride 0.9% 10 ML Syringe FLUSH PRN (20:00)
[2023-02-21] MEDS ORDERED: Sodium Chloride 0.9% 1,000 ML IV ONE ×2 (20:00→20:59)
[2023-02-21] MEDS ORDERED: Ondansetron 4 MG/2 ML SDV IVPUSH ONE (20:00)
[2023-02-21 20:12] LABS: BASOPHILS PERCENT AUTO 0.2 % (0.0-1.0); HEMATOCRIT 48.9 % (37.0-47.0); LYMPHOCYTES PERCENT AUTO 21.3 % (20.5-50.1); MEAN CORPUSCULAR HEMOGLOBIN 28.5 pg (27.0-34.0); MEAN CORPUSCULAR HGB CONC 34.8 g/dL (33.0-35.0); NEUTROPHILS PERCENT AUTO 67.5 % (42.2-75.2); PLATELET COUNT,PLT 217 10^3/uL (150-450); RED BLOOD CELL COUNT 5.96 10^6/uL (4.2-5.4); WHITE BLOOD CELL COUNT,WBC 8.1 10^3/uL (5.0-10.0)
[2023-02-21 20:32] LABS: INR 1.1 (0.9-1.2); PROTHROMBIN TIME 10.8 SEC (9.0-12.0)
[2023-02-21 20:34] LABS: A/G RATIO 1.2; ALANINE AMINOTRANSFERASE,ALT 31 U/L (14-59); ALBUMIN 3.7 g/dL (3.4-5.0); ALKALINE PHOSPHATASE 91 U/L (46-116); AMYLASE 44 U/L (25-115); ANION GAP 17.4 mEq/L (7-13); ASPARTATE AMNIOTRANSFERASE,AST 41 U/L (15-37); BILIRUBIN TOTAL 1.2 mg/dL (0.2-1.0); BLOOD UREA NITROGEN,BUN 16 mg/dL (7-18); BUN/CREATININE RATIO 16.5 (No establ ref range); CARBON DIOXIDE,CO2 22 mmol/L (21-32); CHLORIDE,CL 102 mmol/L (98-107); CREATININE 0.97 mg/dL (0.55-1.02); EST CRCL DRUG DOSING (CG) 55.74 mL/min; GLUCOSE RANDOM 112 mg/dL (70-99); LIPASE 52 U/L (73-393); MAGNESIUM 1.7 mg/dL (1.8-2.4); POTASSIUM,K 3.4 mmol/L (3.5-5.1); PROTEIN TOTAL,TP 6.7 g/dL (6.4-8.2); SODIUM,NA 138 mmol/L (136-145)
[2023-02-21 20:38] LABS: ESTIMATED GFR 68 mL/min (>=60)
[2023-02-21 20:39] LABS: C-REACTIVE PROTEIN 14.9 mg/dL (0.0-0.9)
[2023-02-21 20:43] LABS: LACTIC ACID 1.2 mmol/L (0.4-2.0)
[2023-02-21 20:44] LABS: APPEARANCE,URINE SLIGHTLY CLOUDY (CLEAR); BILIRUBIN,URINE MODERATE (NEGATIVE); COLOR,URINE YELLOW (YELLOW); GLUCOSE,URINE NEGATIVE (NEGATIVE); KETONES,URINE 80 (NEGATIVE); LEUKOCYTE ESTERASE,URINE NEGATIVE (NEGATIVE); NITRITE,URINE NEGATIVE (NEGATIVE); OCCULT BLOOD,URINE NEGATIVE (NEGATIVE); PH,URINE 5.5 (5.0-9.0); PROTEIN,URINE 30 (NEGATIVE); UROBILINOGEN,URINE 0.2 mg/dL (0.2-1.0)
[2023-02-21 20:48] LABS: B-TYPE NATRIURETIC PEPTIDE,BNP < 5 pg/ml (0-100)
[2023-02-21] MEDS ORDERED: Ketorolac 30 MG/ML SDV IVPUSH ONE (20:52)
[2023-02-21] MEDS ORDERED: diphenhydrAMINE 50 MG/ML SDV IVPUSH ONE (20:52)
[2023-02-21] MEDS ORDERED: Metoclopramide 10 MG/2 ML SDV IVPUSH ONE (20:52)
[2023-02-21 20:53] LABS: AMPHETAMINES,URINE NEGATIVE (NEGATIVE); BARBITURATES,URINE NEGATIVE (NEGATIVE); BENZODIAZEPINE,URINE NEGATIVE (NEGATIVE); MDMA (ECSTASY), URINE NEGATIVE (NEGATIVE); METHADONE,URINE NEGATIVE (NEGATIVE); METHAMPHETAMINES,URINE NEGATIVE (NEGATIVE); OPIATES,URINE NEGATIVE (NEGATIVE); OXYCODONE,URINE NEGATIVE (NEGATIVE); PHENCYCLIDINE,URINE NEGATIVE (NEGATIVE); TCA,URINE NEGATIVE (NEGATIVE)
[2023-02-21 21:01] LABS: BACTERIA,URINE MODERATE /HPF (0-FEW/HPF); EPITHELIAL CELLS,URINE MODERATE /HPF (NOT SEEN); RBC,URINE 0-5 /HPF (0-5)
[2023-02-21] MEDS ORDERED: HYDROmorphone 1 MG/ML Syringe IVPUSH ONE (21:22)
[2023-02-21] MEDS ORDERED: Take Home: Ondansetron 4 MG Tab.DIS, 5 Tab Pack PO ONE (22:19)
[2023-02-21 22:45] VITALS: BP 116/68; PULSE 99
== END 2023-02-21 22:35 | disposition home or self-care (01) ==
LOC: DL.ED 19:45
DX: G43.909 Migraine, unspecified, not intractable, without status migrainosus (principal); R10.9 Unspecified abdominal pain; R19.7 Diarrhea, unspecified; E78.00 Pure hypercholesterolemia, unspecified; E11.9 Type 2 diabetes mellitus without complications; E03.9 Hypothyroidism, unspecified; Z79.899 Other long term (current) drug therapy; Z20.822 Contact with and (suspected) exposure to COVID-19
CPT/HCPCS: 36415; 80053; 80305-QW; 81001; 82150; 83605; 83690; 83735; 83880; 84145; 84484; 85025; 85610; 85730; 86140; 87804; 93005; 93010; 96361; 96374; 96375; 99284; 99284-25; J1170; J1200; J1885; J2405; J2765; J3490; J7030; Q0162; U0002

== ENCOUNTER 2024-01-04 04:17 | Emergency (ER) | payer MEDICAID, OTHER ==
[2024-01-04 04:51] LABS: BASOPHILS PERCENT AUTO 0.3 % (0.0-1.0); EOSINOPHILS PERCENT AUTO 2.1 % (1.0-3.0); HEMATOCRIT 44.1 % (37.0-47.0); HEMOGLOBIN 15.2 g/dL (12.0-16.0); LYMPHOCYTES PERCENT AUTO 37.4 % (20.5-50.1); MEAN CORPUSCULAR HEMOGLOBIN 29.1 pg (27.0-34.0); MEAN CORPUSCULAR HGB CONC 34.5 g/dL (33.0-35.0); MEAN CORPUSCULAR VOLUME 84.5 fL (80-100); MONOCYTES PERCENT AUTO 9.1 % (2-8); NEUTROPHILS PERCENT AUTO 51.1 % (42.2-75.2); PLATELET COUNT,PLT 266 10^3/uL (150-450); RED BLOOD CELL COUNT 5.22 10^6/uL (4.2-5.4); WHITE BLOOD CELL COUNT,WBC 7.2 10^3/uL (5.0-10.0)
[2024-01-04] MEDS: Sodium Chloride 0.9% 10 ML Syringe FLUSH PRN (04:58)
[2024-01-04 05:28] LABS: PROTHROMBIN TIME 10.3 SEC (9.0-12.0)
[2024-01-04 05:29] LABS: A/G RATIO 1.2; ALANINE AMINOTRANSFERASE,ALT 22 U/L (14-59); ALBUMIN 3.5 g/dL (3.4-5.0); ALKALINE PHOSPHATASE 107 U/L (46-116); ANION GAP 12.5 mEq/L (7-13); ASPARTATE AMNIOTRANSFERASE,AST 18 U/L (15-37); BILIRUBIN TOTAL 0.5 mg/dL (0.2-1.0); BLOOD UREA NITROGEN,BUN 10 mg/dL (7-18); BUN/CREATININE RATIO 9.7 (No establ ref range); CALCIUM 9.3 mg/dL (8.5-10.1); CARBON DIOXIDE,CO2 28 mmol/L (21-32); CHLORIDE,CL 103 mmol/L (98-107); CREATININE 1.03 mg/dL (0.55-1.02); EST CRCL DRUG DOSING (CG) 52.92 mL/min; GLUCOSE RANDOM 167 mg/dL (70-99); MAGNESIUM 1.8 mg/dL (1.8-2.4); POTASSIUM,K 3.5 mmol/L (3.5-5.1); PROTEIN TOTAL,TP 6.5 g/dL (6.4-8.2); SODIUM,NA 140 mmol/L (136-145)
[2024-01-04 05:30] LABS: ESTIMATED GFR 63 mL/min (>=60)
[2024-01-04 05:32] LABS: C-REACTIVE PROTEIN < 0.50 ng/dL (<=0.50); ETHANOL BLOOD MEDICAL < 3 mg/dL (0)
[2024-01-04 05:33] LABS: LACTIC ACID 2.2 mmol/L (0.4-2.0)
[2024-01-04] MEDS: Sodium Chloride 0.9% 1,000 ML IV ONE ×2 (06:07→07:02)
[2024-01-04 06:13] LABS: BILIRUBIN,URINE NEGATIVE (NEGATIVE); COLOR,URINE DARK YELLOW (YELLOW); GLUCOSE,URINE NEGATIVE (NEGATIVE); KETONES,URINE NEGATIVE (NEGATIVE); LEUKOCYTE ESTERASE,URINE SMALL (NEGATIVE); NITRITE,URINE NEGATIVE (NEGATIVE); OCCULT BLOOD,URINE TRACE-INTACT (NEGATIVE); PROTEIN,URINE 30 (NEGATIVE); UROBILINOGEN,URINE 0.2 mg/dL (0.2-1.0)
[2024-01-04 06:14] LABS: APPEARANCE,URINE SLIGHTLY CLOUDY (CLEAR)
[2024-01-04 06:16] LABS: AMPHETAMINES,URINE NEGATIVE (NEGATIVE); BARBITURATES,URINE NEGATIVE (NEGATIVE); BENZODIAZEPINE,URINE NEGATIVE (NEGATIVE); MDMA (ECSTASY), URINE NEGATIVE (NEGATIVE); METHADONE,URINE NEGATIVE (NEGATIVE); METHAMPHETAMINES,URINE NEGATIVE (NEGATIVE); OPIATES,URINE NEGATIVE (NEGATIVE); OXYCODONE,URINE NEGATIVE (NEGATIVE); PHENCYCLIDINE,URINE NEGATIVE (NEGATIVE); TCA,URINE NEGATIVE (NEGATIVE)
[2024-01-04 06:25] LABS: BACTERIA,URINE FEW /HPF (0-FEW/HPF); EPITHELIAL CELLS,URINE FEW /HPF (NOT SEEN); RBC,URINE 0-5 /HPF (0-5)
[2024-01-04 06:29] LABS: CALCIUM OXALATE CRYSTALS,URINE MODERATE /HPF (NOT SEEN); HYALINE CASTS,URINE FEW
[2024-01-04 07:02] VITALS: BP 128/71; PULSE 80
[2024-01-04] MEDS: Hydrocortisone Sodium Succinate 100 MG/2 ML SDV IVPUSH ONE (08:51)
== END 2024-01-04 09:08 | disposition home or self-care (01) ==
LOC: DL.ED 04:17
DX: R55 Syncope and collapse (principal); R31.9 Hematuria, unspecified; E86.0 Dehydration; E27.1 Primary adrenocortical insufficiency; E78.00 Pure hypercholesterolemia, unspecified; E11.9 Type 2 diabetes mellitus without complications; E03.9 Hypothyroidism, unspecified; Z86.16 Personal history of COVID-19; Z91.011 Allergy to milk products; Z91.048 Other nonmedicinal substance allergy status; Z79.890 Hormone replacement therapy; Z79.899 Other long term (current) drug therapy; Z90.49 Acquired absence of other specified parts of digestive tract; Z90.710 Acquired absence of both cervix and uterus
CPT/HCPCS: 36415; 70450; 71045; 72125; 80053; 80305; 80307; 81001; 82947; 83605; 83735; 83880; 84145; 84484; 85025; 85610; 85730; 86140; 87086; 87088; 87186; 93005; 93010; 96361; 96374; 99284; J1720; J7030; J3490

== ENCOUNTER 2024-05-11 14:06 | Emergency (ER) | payer MEDICAID, OTHER ==
[2024-05-11 14:59] LABS: BASOPHILS PERCENT AUTO 0.3 % (0.0-1.0); EOSINOPHILS PERCENT AUTO 0.5 % (1.0-3.0); HEMATOCRIT 43.3 % (37.0-47.0); HEMOGLOBIN 14.9 g/dL (12.0-16.0); LYMPHOCYTES PERCENT AUTO 13.7 % (20.5-50.1); MEAN CORPUSCULAR HEMOGLOBIN 29.2 pg (27.0-34.0); MEAN CORPUSCULAR HGB CONC 34.4 g/dL (33.0-35.0); MEAN CORPUSCULAR VOLUME 84.7 fL (80-100); MONOCYTES PERCENT AUTO 2.2 % (2-8); NEUTROPHILS PERCENT AUTO 83.3 % (42.2-75.2); PLATELET COUNT,PLT 306 10^3/uL (150-450); RED BLOOD CELL COUNT 5.11 10^6/uL (4.2-5.4); WHITE BLOOD CELL COUNT,WBC 6.5 10^3/uL (5.0-10.0)
[2024-05-11 15:00] LABS: APPEARANCE,URINE CLEAR (CLEAR); BILIRUBIN,URINE NEGATIVE (NEGATIVE); COLOR,URINE YELLOW (YELLOW); GLUCOSE,URINE NEGATIVE (NEGATIVE); KETONES,URINE NEGATIVE (NEGATIVE); LEUKOCYTE ESTERASE,URINE NEGATIVE (NEGATIVE); NITRITE,URINE NEGATIVE (NEGATIVE); OCCULT BLOOD,URINE NEGATIVE (NEGATIVE); PH,URINE 5.5 (5.0-9.0); PROTEIN,URINE NEGATIVE (NEGATIVE); UROBILINOGEN,URINE 0.2 mg/dL (0.2-1.0)
[2024-05-11 15:20] LABS: A/G RATIO 1.4; ALBUMIN 3.8 g/dL (3.4-5.0); ANION GAP 12.9 mEq/L (7-13); BILIRUBIN TOTAL 0.6 mg/dL (0.2-1.0); BUN/CREATININE RATIO 7.2 (No establ ref range); CALCIUM 9.6 mg/dL (8.5-10.1); CREATININE 0.97 mg/dL (0.55-1.02); EST CRCL DRUG DOSING (CG) 56.19 mL/min; POTASSIUM,K 3.9 mmol/L (3.5-5.1); PROTEIN TOTAL,TP 6.6 g/dL (6.4-8.2)
[2024-05-11] MEDS ORDERED: Acetaminophen Soln 160 MG/5 ML UD Cup PO ONE (17:02)
[2024-05-11] MEDS ORDERED: Albuterol 0.083% 2.5 MG/3 ML Neb Soln NEB ONE (17:03)
[2024-05-11] MEDS: Dexamethasone 4 MG/ML SDV IVPUSH ONE (17:50)
[2024-05-11 18:15] VITALS: BP 130/71; PULSE 78
== END 2024-05-11 18:00 | disposition home or self-care (01) ==
LOC: DL.ED 14:06
DX: J06.9 Acute upper respiratory infection, unspecified (principal); B97.89 Other viral agents as the cause of diseases classified elsewhere; E86.9 Volume depletion, unspecified; E78.00 Pure hypercholesterolemia, unspecified; E11.9 Type 2 diabetes mellitus without complications; E03.9 Hypothyroidism, unspecified; Z86.16 Personal history of COVID-19; Z90.49 Acquired absence of other specified parts of digestive tract; Z90.710 Acquired absence of both cervix and uterus; E66.9 Obesity, unspecified; Z68.35 Body mass index [BMI] 35.0-35.9, adult; Z91.011 Allergy to milk products; Z91.048 Other nonmedicinal substance allergy status; Z79.899 Other long term (current) drug therapy
CPT/HCPCS: 36415; 71046; 80053; 81003; 83735; 84484; 85025; 85379; 87081; 87428; 87430; 93005; 96374; 99285; J1100; 93010; 99284

== ENCOUNTER 2024-08-12 16:02 | Emergency (ER) | payer MEDICAID, OTHER ==
[2024-08-12] MEDS: Ketorolac 30 MG/ML SDV IM ONE (16:27)
[2024-08-12] MEDS: Ondansetron 4 MG Tab.DIS PO ONE (16:27)
[2024-08-12 16:37] VITALS: BP 110/72; PULSE 98
[2024-08-12] MEDS: Take Home: Ondansetron 4 MG Tab.DIS, 5 Tab Pack PO ONE (16:57)
== END 2024-08-12 16:51 | disposition home or self-care (01) ==
LOC: DL.ED 16:02
DX: J10.1 Influenza due to other identified influenza virus with other respiratory manifestations (principal); E78.00 Pure hypercholesterolemia, unspecified; E11.9 Type 2 diabetes mellitus without complications; E03.9 Hypothyroidism, unspecified; E66.9 Obesity, unspecified; Z86.16 Personal history of COVID-19; Z90.49 Acquired absence of other specified parts of digestive tract; Z90.710 Acquired absence of both cervix and uterus; Z79.899 Other long term (current) drug therapy; Z79.51 Long term (current) use of inhaled steroids; Z79.52 Long term (current) use of systemic steroids; Z79.891 Long term (current) use of opiate analgesic; Z91.09 Other allergy status, other than to drugs and biological substances; Z91.011 Allergy to milk products; Z68.36 Body mass index [BMI] 36.0-36.9, adult
CPT/HCPCS: 87428; 96372; 99283; 99284; A9270; J1885; Q0162